=== PATIENT | male | born 1985 | race Caucasian/White ===

== ENCOUNTER → 2021-08-20 16:07 | Outpatient (CLI) | payer OTHER, SELFPAY ==
--- NOTE | ~2021-08-20 | XR_ITS ---
XR thoracic spine 2V 08/20/2021 17:27 Indication: Thoracic back pain Procedure: 3 views thoracic spine Comparison: No prior studies for comparison. Findings: There is mild levocurvature of the lower thoracic spine. Vertebral body heights are maintai amru. No fracture, subluxation or dislocation. No paraspinal soft tissue abnormality. Surrounding osse ous structures within normal limits. Impression: 1: Mild levocurvature of the lower thoracic spine. Reviewed, dictated and finalized at location A. Impression: 1: Mild levocurvature of the lower thoracic spine.
--- NOTE | ~2021-08-20 | XR_ITS ---
XR_[id number] 08/20/2021 17:26 Indication: Neck pain Procedure: 4 view cervical spine Comparison: No prior studies for comparison. Findings: No fracture, subluxation or dislocation. No prevertebral soft tissue abnormality. Odontoid process within normal limits. Lung apices are normal. There is anatomic alignment. Impression: 1: No acute abnormality of the cervical spine. Reviewed, dictated and finalized at location A. Impression: 1: No acute abnormality of the cervical spine.
== END ==
PROVIDERS: Visit Provider Chiropractor
DX: M54.2 Cervicalgia (principal); M54.6 Pain in thoracic spine
CPT/HCPCS: 72040; 72070

== ENCOUNTER 2023-04-17 00:01 | Emergency (ER) | payer OTHER, SELFPAY ==
[2023-04-16 23:58] VITALS: BP 132/74; PULSE 64; RESP 28; TEMP 36.6; O2SAT 100
--- NOTE | 2023-04-17 00:05 | ECG_ITS ---
Measurements Intervals [place] Rate: 62 P: 49 VA: 136 QRS: -30 QRSD: 110 T: 42 QT: 425 QTc: 433 Interpretive Statements SINUS RHYTHM BORDERLINE LEFT AXIS DEVIATION [QRS AXIS < -20] BORDERLINE ECG NO PREVIOUS ECG AVAILABLE FOR COMPARISON Electronically Signed On 04-17-2023 7:59:15 CDT by Omar Kennedy M.D.
--- NOTE | 2023-04-17 00:05 | PC.NURSE ---
Patient states that his pain is going into is diaphragm.
[2023-04-17 00:12] VITALS: O2SAT 98
[2023-04-17 00:20] LABS: Basophils Absolute Auto 0.1 K/mm3 (0.0-0.1); Basophils Percent Auto 0.4 % (0.2-1.2); Eosinophils Absolute Auto 0.1 K/mm3 (0-0.3); Eosinophils Percent Auto 0.9 % (0-4.4); Hematocrit 41.4 % (42.0-52.0); Hemoglobin 14.3 g/dL (14.0-18.0); Immature Granulocyte Absolute 0.02 K/mm3 (0.00-0.031); Immature Granulocyte Percent A 0.2 % (0-0.5); Lymphocytes Absolute Auto 0.89 K/mm3 (0.9-3.2); Lymphocytes Percent Auto 7.7 % (18.3-44.2); Mean Corpuscular HGB Conc 34.5 g/dl (32-36); Mean Corpuscular Hemoglobin 29.7 pg (26-34); Mean Corpuscular Volume 85.9 fl (80-100); Mean Platelet Volume 8.9 fl (7.4-10.4); Monocytes Absolute Auto 0.7 K/mm3 (0.1-0.6); Monocytes Percent Auto 5.9 % (2.6-8.5); Neutrophils Absolute Auto 9.8 K/mm3 (1.3-6.7); Neutrophils Percent Auto 84.9 % (45.5-73.1); Platelet Count Result 200 k/mm3 (150-375); Red Blood Count 4.82 M/mm3 (4.6-6.20); Red Cell Distribution Width 12.4 % (11.5-14.5); White Blood Count 11.5 K/mm3 (4.5-10.0)
[2023-04-17] MEDS: SODIUM CHLORIDE 0.9% IV 2,000 ML 999 ML IV CONT (00:22)
[2023-04-17] MEDS: ONDANSETRON INJ 4 MG/2 ML VIAL IV PUSH (00:23)
[2023-04-17] MEDS: FAMOTIDINE 20 MG/2 ML VIAL IV PUSH (00:24)
[2023-04-17] MEDS: HALOPERIDOL LACTATE 5 MG/ML VIAL IV PUSH (00:26)
[2023-04-17 00:36] LABS: Alanine Aminotransferase 68 U/L (6-50); Albumin Level 4.4 g/dL (3.5-5.1); Alkaline Phosphatase 38 U/L (38-126); Anion Gap 9 mmol/L (8-16); Aspartate Amino Transferase 108 U/L (17-59); Bilirubin,Total 1.1 mg/dL (0.2-1.3); Blood Urea Nitrogen 24 mg/dL (9-20); Calcium 9.4 mg/dL (8.4-10.2); Carbon Dioxide 27 mmol/L (22-30); Chloride 101 mmol/L (98-107); Estimated CRCL calculation 120 ml/min; Estimated Glomerular Filt Rate > 60; Glucose 138 mg/dL (65-110); Lipase 91 U/L (23-300); Potassium 4.1 mmol/L (3.4-5.0); Sodium 137 mmol/L (137-145)
--- NOTE | 2023-04-17 00:47 | PC.NURSE ---
Patient began having a panic attack and was crying stating he wanted to go home. Per Dr. Karl BARTLETT 25mg Benydryl IVP and 1mg Ativan IVP.
[2023-04-17 00:51] LABS: Appearance Urine Clear (Clear); Bilirubin Urine Negative (Negative); Blood Urine Negative (Negative); Color Urine Yellow (Yellow); Glucose Urine UA Negative (Negative); Ketones Urine 2+ mg/dL (Negative); Leukocyte Esterase Ur Negative LEU/UL (Negative); Nitrate Urine Negative (Negative); Protein Urine Negative (Negative); Specific Grav Ur 1.026 (1.001-1.035); pH Urine 5.5 (5.0-9.0)
[2023-04-17] MEDS: diphenhydrAMINE HCl INJ 50 MG/ML VIAL 25 MG IV PUSH (00:59)
[2023-04-17] MEDS: LORazepam INJ (*CRX) 2 MG/ML VIAL 1 MG IV PUSH (01:00)
[2023-04-17 01:03] LABS: Add Urine Microscopic? NO
--- NOTE | 2023-04-17 01:29 | ED.GENADULT ---
HPI - General Adult General Chief complaint: Abdominal Pain Stated complaint: abdominal pain Time Seen by Provider: 04/17/23 00:02 History of Present Illness HPI narrative: this is a 37-year-old male with no medical history presenting to ED with sudden onset of abdominal pain. Abdominal pain started 1 hour ago mother lying in bed. His crampy diffuse abdominal pain that is nonradiating 8 out 10 intensity and improving. He has never had pain like this before there are no exacerbating alleviating factors. He did try to make himself vomit did feel better, he has also had subjective chills. No fevers, shortness of breath diarrhea or urinary symptoms. 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 He has had more free time. He is a heavy marijuana user. Related Data Allergies Allergy/AdvReac Type Severity Reaction Status Date / Time codeine Allergy Mild Unverified 02/07/09 15:50 Exam Narrative: APPEARANCE: patient appears anxious, he is gripping the hand rails Head: atraumatic. EYES: EOMI, NOSE: Atraumatic NECK: Trachea midline RESPIRATORY: No increased rate of breathing clear to auscultation CARDIOVASCULAR: RRR, ABDOMINAL: voluntary guarding, no focal tenderness MUSCULOSKELETAl: No obvious deformities NEURO: Alert. Moving 4/4 extremities SKIN:: Warm, dry. Normal color PSYCHIATRIC: patient appears incredibly anxious Course Vital Signs Vital signs: Vital Signs Temperature 97.8 F 04/16/23 23:58 Pulse Rate 64 04/16/23 23:58 Respiratory Rate 28 H 04/16/23 23:58 Blood Pressure 132/74 04/16/23 23:58 Pulse Oximetry 100 04/16/23 23:58 Oxygen Delivery Room Air 04/16/23 23:58 Temperature 97.8 F 04/16/23 23:58 Pulse Rate 64 04/16/23 23:58 Respiratory Rate 28 H 04/16/23 23:58 Blood Pressure 132/74 04/16/23 23:58 Pulse Oximetry 98 04/17/23 00:12 Oxygen Delivery Room Air 04/17/23 00:12 Medical Decision Making [facility] Narrative Medical decision making narrative: -Presentation: 37-year-old male with no medical history presenting with acute onset of generalized abdominal pain and the urge to vomit. Patient be treated 2 L of normal saline, Haldol Pepcid and Zofran. After patient received Haldol he had a dystonic reaction and was given Benadryl 25 mg and Ativan which completely resolved his symptoms. 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 Suspect stress reaction. Metabolic panel normal. Urine not indicative of infection. Independent EKG interpretation: Rhythm [sinus], Rate [62], Dora -[normal], RI -[normal], QRS [narrow], QTC [normal], T waves -[negative for concerning inversions], ST Segments - [Negative for concerning elevations] Final interpretations: [Normal Sinus Rhythm] Dx tests considered but not ordered: -Procedures: -Interventions: 2 L normal saline, 5 mg Haldol, 20 mg Pepcid, 4 mg Zofran -> 1 mg Ativan, 25 mg Benadryl -Shared decision making / Disposition: upon re-evaluation the patient's symptoms have completely resolved. His abdominal exam is benign. His vital signs are stable. I talked to him about his marijuana use he has verbalized his understanding. Patient will be discharged. -RX Zofran 4mg odt Vital Signs Vital Signs: Vital Signs Temperature 97.8 F 04/16/23 23:58 Pulse Rate 64 04/16/23 23:58 Respiratory Rate 28 H 04/16/23 23:58 Blood Pressure 132/74 04/16/23 23:58 Pulse Oximetry 100 04/16/23 23:58 Oxygen Delivery Room Air 04/16/23 23:58 Temperature 97.8 F 04/16/23 23:58 Pulse Rat
[2023-04-17 01:52] VITALS: BP 124/74; PULSE 86; RESP 21; TEMP 36.8; O2SAT 100
== END 2023-04-17 01:53 | disposition home or self-care (01) ==
PROVIDERS: Emergency Provider Emergency Medicine
DX: R11.11 Vomiting without nausea (principal); F12.90 Cannabis use, unspecified, uncomplicated; R94.31 Abnormal electrocardiogram [ECG] [EKG]
CPT/HCPCS: 36415; 80053; 81003; 83690; 85025; 93005; 96361; 96374; 96375; 99284; J1200; J1630; J2060; J2405; J7030

== ENCOUNTER 2024-11-14 22:09 | Emergency (ER) | payer OTHER, SELFPAY | END 2024-11-14 22:26 | disposition left against medical advice (07) | DX: Z53.21 Procedure and treatment not carried out due to patient leaving prior to being seen by health care provider (principal) | CPT/HCPCS: 99199 ==